=== PATIENT | male | born 1965 | race Caucasian/White ===

== ENCOUNTER 2016-08-06 13:08 | Emergency (ER) | payer OTHER ==
[~2016-08-06] VITALS: Ht 190.5 cm; Wt 91.6 kg
--- NOTE | 2016-08-06 14:11 | RADIOLOGY REPORT ---
EXAMINATION: XR ANKLE, RIGHT CLINICAL INFORMATION: Rolled ankle COMPARISON: None TECHNIQUE: AP, lateral, and mortise views of the right ankle. FINDINGS: There is prominent lateral soft tissue swelling. No evidence for acute fracture or dislocation. Alignment at the ankle is maintained. No definite joint effusion. IMPRESSION: Prominent lateral soft tissue swelling. No acute fracture or malalignment.
[2016-08-06] MEDS ORDERED: SERTRALINE HCL50 MG PO (14:39)
[2016-08-06] MEDS ORDERED: ASPIRIN81 M4 PO (14:39)
--- NOTE | 2016-08-06 14:56 | ED ANKLE/FOOT INJURY COMPLAINT ---
History of Present Illness General Chief Complaint: Foot or Ankle Injury Stated Complaint: RT ANKLE PAIN Source: patient, old records Exam Limitations: no limitations Vital Signs & Intake/Output Vital Signs & Intake/Output Vital Signs Date Time Temp Pulse Resp B/P Pulse O2 O2 Flow FiO2 Ox Delivery Rate 08/06 1550 98.0 73 16 128/72 98 Room Air 08/06 1312 97.0 84 18 121/75 98 Room Air Allergies Coded Allergies: NO KNOWN ALLERGIES (04/01/11) Reconcile Medications Aspirin (Aspirin*) 81 MG TAB.CHEW 1 TAB PO DAILY HEART HEALTH (Reported) Sertraline HCl 50 MG TABLET 1.5 TAB PO DAILY MENTAL HEALTH (Reported) Triage Note: COMPLAINS THAT HE ROLLED HIS L ANKLE LAST PM, TOOK ALEVE PRIOR TO ARRIVAL. SWELLING NOTED Triage Nurses Notes Reviewed? yes Occurred: yesterday Duration: day(s): (2) Timing: recent history Severity: mild, moderate Severity Numbers: 5 Pain/Injury Location: Right: Ankle. Method of Injury: twisted No Modifying Factors: none Associated Symptoms: swelling HPI: 51-year-old male presents to emergency room complaining of pain aching sudden onset constant swelling bruising to the right ankle status post basketball injury last night when he came down and twisted his ankle. He denies any proximal leg knee hip or back pain is not taken anything for his symptoms, he states is been able to bear weight however want to come in to make sure it was not broken. There is no left leg injury or no modifying factors or associated symptoms otherwise (SAM APODACA) Past History Travel History Traveled to [place] past 21 day No Medical History Any Pertinent Medical History? none Neurological: NONE EENT: NONE Cardiovascular: NONE Respiratory: NONE Gastrointestinal: NONE Hepatic: NONE Renal: NONE Musculoskeletal: NONE Psychiatric: NONE Endocrine: NONE Blood Disorders: NONE Cancer(s): NONE MACHINE PRESSER/Reproductive: NONE Surgical History Surgical History: none Psychosocial History What is your primary language Bulgarian Tobacco Use: Never used ETOH Use: denies use Illicit Drug Use: denies illicit drug use Family History Hx Contributory? No (SAM APODACA) Review of Systems Review of Systems Constitutional: Reports: see HPI. All Other Systems: Reviewed and Negative Comments Review of systems: See HPI, All other systems negative. Constitutional, no chills no fever, no malaise HEENT: No visual changes no sore throat no congestion Cardiovascular: No chest pain , no palpitation , Skin, no jaundice no rashes, no change in skin Respiratory: No dyspnea no cough no sputum GI: No nausea no vomiting, no diarrhea : No dysuria Muscle skeletal: joint pain, joint swelling, no back pain, no neck pain, Neurologic: No numbness no headache Psych: No stress Heme/endocrine: No bruising no bleeding Immunology: No lymphadenopathy (SAM APODACA) Physical Exam Physical Exam General Appearance: well developed/nourished, no apparent distress, alert, awake Leg/Knee/Thigh Left: normal range of motion Comments: Well-developed well-nourished patient in no apparent distress. HEENT: Atraumatic, extraocular motion intact Neck: Supple, FROM, Back: FROM Cardiovascular: Regular rate and rhythms no murmurs Respiratory: No respiratory distress. Patient speaking in full complete sentences. Breath sounds clear to auscultation bilaterally: NO W/R/R Upper Extremities: full range of motion Hip/Pelvis: Atraumatic/Stable. FROM Knee: Atraumatic/stable. FROM. No joint swelling, no effusion. No laxity. Negative marcos/anterior drawer test. No pain with ROM Leg: Atraumatic. No proximal tib-fib tenderness. No edema, 5 out of 5 strength in the lower extremity, normal dorsiflexion of great toe bilaterally, gross sensation is intact, patellar tendon reflex 2+ bilaterally. Ankle/Foot: Ankle with moderate tenderness laterally over the lateral ligaments. No bony tenderness. No medial tenderness. Range of motion is near full but somewhat limited due to pain. No instability is noted. Skin is intact, moderate swelling and ecchymosis over the lateral malleolus and lateral foot, the foot is nontender the foot is neurovascularly intact with sensation and motor grossly intact. There is no foot tenderness or fifth metatarsal tenderness. Able to move all toes. Palpable and intact achilles tendon. There is no proximal tib/fib tenderness Pulses: Normal/equal DP/PT pulses bilaterally. Brisk cap refill Neuro: Alert and oriented x3 Skin: Warm & dry;No appreciable rash on exposed skin Psych: Mood affect normal, normal memory normal judgment. (SAM APODACA) Progress Differential Diagnosis: cellulitis, gout, fracture, dislocation, sprain, contusion, compartmental syndrome Plan of Care: Orders Procedure Date/time Status Durable Medical Equipment 08/06 1508 Active Discussed with patient his x-ray results he is declining anything for pain again when offered. Pneumatic boot crutches were provided I discussed with him need for close follow-up with orthopedist if symptoms persist rest ice elevation answered all his questions he feels comfortable plan cleared for discharge (SAM APODACA) Diagnostic Imaging: Viewed by Me: Radiology Read. Discussed w/RAD: Radiology Read. Radiology Impression: PATIENT: BUCK ROCHA PRESENT AGE: 51 PATIENT ACCOUNT NO: [id number] : 69 LOCATION: [facility] ORDERING PHYSICIAN: JUAN PABLO SAUCEDO DO SERVICE DATE: 08/06/16 EXAM TYPE: RAD - XRY-ANKLE 3 OR MORE VIEWS R EXAMINATION: XR ANKLE, RIGHT CLINICAL INFORMATION: Rolled ankle COMPARISON: None TECHNIQUE: AP, lateral, and mortise views of the right ankle. FINDINGS: There is prominent lateral soft tissue swelling. No evidence for acute fracture or dislocation. Alignment at the ankle is maintained. No definite joint effusion. IMPRESSION: Prominent lateral soft tissue swelling. No acute fracture or malalignment. DICTATED BY: GRICELDA CASTILLO MD DATE/TIME DICTATED:08/06/161403 AIRWAY TRAFFIC CONTROLLER:CARLOS DATE/TIME TRANSCRIBED:08/06/161403 CONFIDENTIAL, DO NOT COPY WITHOUT APPROPRIATE AUTHORIZATION. <Electronically signed in Other Vendor System> SIGNED BY: GRICELDA CASTILLO MD 08/06/16 1411 (SAM APODACA) Departure Departure Time of Disposition: 1507 Disposition: HOME OR SELF CARE Condition: Stable Clinical Impression Primary Impression: Ankle sprain Referrals: CARLOS KONG,SHLOMO Brown (PCP/Family) BRIA BERRIOS MD Additional Instructions: rest, ice, keep leg elevated. tylenol or motrin for pain, collins and crutches as discussed. follow up with dr berrios with any concerns Departure Forms: Customer Survey General Discharge Information (SAM APODACA) PA/CLERK CHECKER Co-Sign Statement Statement: ED Attending supervision documentation- [] I saw and evaluated the patient. I have also reviewed all the pertinent lab results and diagnostic results. I agree with the findings and the plan of care as documented in the PA's/CLERK CHECKER's documentation. [X] I have reviewed the ED Record and agree with the PA's/CLERK CHECKER's documentation. [] Additions or exceptions (if any) to the PAs/CLERK CHECKER's note and plan are summarized below: [] (JUAN PABLO SAUCEDO DO)
[2016-08-06 15:50] VITALS: BP 128/72
== END 2016-08-06 15:50 ==
LOC: ERH 13:08
DX: S93.401A Sprain of unspecified ligament of right ankle, initial encounter (principal); X58.XXXA Exposure to other specified factors, initial encounter
CPT/HCPCS: 73610-RT